=== PATIENT | female | born 1985 | race Caucasian/White ===

== ENCOUNTER 2016-05-09 10:34 | Emergency (ER) | payer OTHER ==
[2016-05-09 10:58] VITALS: BP 112/64
== END 2016-05-09 12:05 | disposition left against medical advice (07) ==
LOC: ED 10:34
DX: R11.10 Vomiting, unspecified (principal); R19.7 Diarrhea, unspecified; Z53.21 Procedure and treatment not carried out due to patient leaving prior to being seen by health care provider
CPT/HCPCS: 99281

== ENCOUNTER 2019-03-19 08:04 | Emergency (ER) | payer BC, MEDICAID ==
[2019-03-19 08:23] VITALS: BP 129/71
[2019-03-19] MEDS ORDERED: Ibuprofen TAB* 600 MG PO ONE (08:44)
[2019-03-19 10:13] LABS: Influenza B Molecular POSITIVE (Negative)
--- NOTE | 2019-03-19 10:18 | UC ---
Back Pain HPI - HPI Summary HPI Summary: 34-year-old woman comes in with a chief complaint of low back pain. Patient reports she had an injury back in 2013 and has had chronic intermittent low back pain ever since then. Occasionally the pain and some numbness radiates down through the buttocks into the upper legs. Last week she's been working quite a bit and her back pain is worse than usual. No difficulty controlling urine or bowels. No weakness. Since last night her back pain has gotten much more severe. She's having chills and generalized body aches and feels ill overall. Patient reports that she's had some medical care for her back injury when it happened but nothing since. The back pain is worse with twisting turning bending. Denies any abdominal pain. No dysuria. - History of Current Complaint Chief Complaint: UCGeneralIllness Stated Complaint: cough, CHILLS, AND ACHES Time Seen by Provider: 03/19/19 08:21 Hx Last Menstrual Period: NUVA RING NO PERIOD IN 6 YEARS Pain Intensity: 10 - Allergies/Home Medications Allergies/Adverse Reactions: Allergies Allergy/AdvReac Type Severity Reaction Status Date / Time nickel Allergy Swelling Verified 03/19/19 10:32 PMH/Surg Hx/FS Hx/Imm Hx Previously Healthy: Yes - CHRONIC BACK PAIN Other History Of: Negative For: HIV, Hepatitis B, Hepatitis C, Anticoagulant Therapy - Surgical History Surgical History: None - Family History Known Family History: Negative: Cardiac Disease, Hypertension, Diabetes - Social History Alcohol Use: Rare Substance Use Type: Marijuana Substance Use Comment - Amount & Last Used: PT STATES STOPPED SMOKING MARIJUANA 7 MONTHS AGO Smoking Status (MU): Current Some Day Smoker Type: Cigarettes Amount Used/How Often: SMOKES 1 CIGARETTE 1X/WEEK Length of Time of Smoking/Using Tobacco: ON AND OFF FOR 8+ YEARS Have You Smoked in the Last Year: Yes Review of Systems All Other Systems Reviewed And Are Negative: Yes Constitutional: Positive: Chills, Other - SEE HPI Skin: Positive: Negative Eyes: Positive: Negative ENT: Positive: Other - SEE HPI Respiratory: Positive: Negative Cardiovascular: Positive: Negative Gastrointestinal: Positive: Negative Genitourinary: Positive: Negative Motor: Positive: Negative Neurovascular: Positive: Negative Musculoskeletal: Positive: Other: - SEE HPI Neurological: Positive: Negative Psychological: Positive: Negative Is Patient Immunocompromised?: No Physical Exam Triage Information Reviewed: Yes Appearance: Well-Nourished, Ill-Appearing - MILD, Pain Distress - MILD WITH ROM OF BACK Vital Signs: Initial Vital Signs Temp 99.0 F 03/19/19 08:15 Pulse 90 03/19/19 08:15 Resp 16 03/19/19 08:15 BP 129/71 03/19/19 08:15 Pulse Ox 95 03/19/19 08:15 Vital Signs Reviewed: Yes Eye Exam: Normal Eyes: Positive: Conjunctiva Clear ENT: Negative: Nasal drainage Neck: Positive: Supple Respiratory: Positive: Lungs clear, Normal breath sounds, No respiratory distress Cardiovascular: Positive: RRR Abdomen Description: Positive: Nontender, Soft Bowel Sounds: Positive: Present Musculoskeletal: Positive: Other: - Patient is tender to palpation midline of lower thoracic and all through the lumbar spine. Normal patellar reflexes normal sensation and the legs. Normal strength and range of motion in the legs with plantarflexion and dorsiflexion knee flexion extension and hip flexion. Neurological: Positive: Alert Psychological: Positive: Age Appropriate Behavior Skin Exam: Normal Back Pain Course/Dx - Course Course Of Treatment: Middle Stitcher: Lele Devlin F ([id number]) Police Pilot: MADALYN ( NUANCE) Report Date: 03/19/2019 09:39:00 Report Status: Final ====== Start of Report Content Patient Name: ILYA HARRIS Medical Record#: [id number] Ordering Physician: Matthias Blanc MD Acct.#: [id number] : Age: 34 Sex: F Location: [facility] Exam Date: 03/19/19844 ADM Status: REG ER Order Information: THORACIC SPINE 2 S Accession Number : [id number] CPT: 30820 INDICATION: Worsening chronic back pain status post trauma. COMPARISON: There are no relevant prior studies available for comparison. TECHNIQUE: AP and lateral films of the dorsal spine were obtained. FINDINGS: The vertebra are in normal alignment. No fracture is seen. Disc spaces appear maintained. IMPRESSION: NO EVIDENCE FOR FRACTURE. <Electronically signed by Lele Devlin MD in OV> 03/19/19934 Dictated By: Lele Devlin MD Dictated Date/ Time: 03/19/19932 Transcribed Date/Time: 03/19/19932 Copy to: CC:No Primary Care Phys,NOPCP ; Matthias Blanc MD Imaging - [facility] [address] [place] [id number] [address] [address] ph [phone]) ph [phone]) ([phone]) End of Report Content ==== Middle Stitcher: Roberto Sanchez Daniel, ([id number]) Police Pilot: MADALYN ( PREMAANCE) Report Date: 03/19/2019 09:39:00 Report Status: Final ====== Start of Report Content Patient Name: ILYA HARRIS Janene Medical Record#: [id number] Ordering Physician: Matthias Blanc MD Acct.#: [id number] : Age: 34 Sex: F Location: [facility] Exam Date: 03/19/19844 ADM Status: REG ER Order Information: SACRUM/COCCYX 2+ VWS Accession Number : [id number] CPT: 80766 HISTORY: worsening chronic pain s/p trauma . COMPARISONS: None relevant available at the time of dictation. VIEWS: 3, frontal , outlet, and lateral views of the sacrum and coccyx. The outlet views limited by positioning. FINDINGS: BONE DENSITY: Normal. BONES: There is no displaced fracture. The sacral arches are intact. JOINTS: There is mild osteoarthritis of the SI joints. ALIGNMENT: There is no dislocation. SOFT TISSUES: Unremarkable. OTHER FINDINGS: None. IMPRESSION: SI OSTEOARTHRITIS. NO ACUTE OSSEOUS INJURY. IF SYMPTOMS PERSIST, RECOMMEND REPEAT IMAGING. <Electronically signed by Roberto Sanchez MD in OV> 03/19/19934 Dictated By: Roberto Sanchez MD Dictated Date/Time: 932 Transcribed Date/Time: 03/19/19932 Copy to: CC:No Primary Care Phys, NOPCP ; Matthias Blanc MD Imaging - [facility] Imaging - [facility] [address] [address] ph [phone]) ph [phone]) ph ([phone]) ==== End of Report Content Middle Stitcher: Roberto Sanchez Daniel, ([id number]) Police Pilot: MADALYN ( MADALYN) Report Date: 03/19/2019 09:36:00 Report Status: Final ====== Start of Report Content Patient Name: ILYA HARRIS Medical Record#: [id number] Ordering Physician: Matthias Blanc MD Acct.#: [id number] : Age: 34 Sex: F Location: [facility] Exam Date: 03/19/19844 ADM Status: REG ER Order Information: SP LUMBARSACRAL 4+ VWS Accession Number: [id number] CPT: 95064 HISTORY: worsening chronic pain s/p trauma COMPARISONS: December 05, 2013 VIEWS: 5 , Frontal, lateral, coned-down lateral sacral, and bilateral oblique views of the lumbar spine. FINDINGS: ALIGNMENT: There is grade 1 anterolisthesis of L5-S1 VERTEBRAL BODIES: There are bilateral pars defects at L5. JOINTS: The facet joints are normal. INTERVERTEBRAL DISCS: The intervertebral disc heights are normal. SOFT TISSUE: Unremarkable. OTHER: The pelvis is unremarkable. The lung bases are clear. IMPRESSION: SPONDYLOLYSIS WITH SPONDYLOLISTHESIS AT L5-S1 SIMILAR TO THE 2013 EXAMINATION. <Electronically signed by Roberto Sanchez MD in OV> 03/19/19932 Dictated By: Roberto Sanchez MD Dictated Date/Time: 03/19/19931 Transcribed Date/Time: 03/19/19931 Copy to: CC:No Primary Care Phys,NOPCP ; Matthias Blanc MD Imaging - [facility] Imaging [facility] [id number] [place] [id number] [place] [address] ph [phone]) ph ([phone]) ph ([phone]) End of Report Content Influenza B is positive. We will treat with Tamiflu. I discussed the x-rays with the patient. Patient has no neurologic deficit on exam today. My impression is that the patient has chronic intermittent low back pain with radiculopathy since an injury in 2012 that's been getting worse because she's been working a lot the last month. When she got the flu with the associated myalgias it made the back pain much worse. Will treat with ibuprofen and lidocaine patches and follow-up with sports medicine. - Differential Dx/Diagnosis Provider Diagnosis: Influenza, Thoracic back pain, Lumbar back pain with radiculopathy affecting lower extremity Discharge ED - Sign-Out/Discharge Documenting (check all that apply): Patient Departure All imaging exams completed and their final reports reviewed: Yes - Discharge Plan Condition: Stable Disposition: HOME Prescriptions: Oseltamivir CAP* [Tamiflu CAP*] 75 mg PO BID #10 cap Patient Education Materials: Influenza (ED), Lumbar Radiculopathy (ED), Back Pain (ED), Lower Back Exercises (ED) Forms: *Work Release Referrals: [facility] [Outside] [facility] [Provider Group] Additional Instructions: FOLLOW UP WITH YOUR DOCTOR IF NOT COMPLETELY IMPROVED. FOLLOW UP WITH SPORTS MEDICINE FOR YOUR BACK PAIN AND BILATERAL LEG NUMBNESS. Take ibuprofen 600 mg every 6 hours as needed for a the pain associated with the influenza and also your chronic low back pain. Use an [id number] lidocaine patch for your back pain if helpful. GET REEVALUATED SOONER IF NOT IMPROVED OR WORSE; WEAKNESS, NUMBNESS, DIFFICULTY CONTROLLING BOWEL OR BLADDER, YOU FEEL ILL OR ANY QUESTIONS OR CONCERNS. - Billing Disposition and Condition Condition: STABLE Disposition: Home
== END 2019-03-19 10:38 | disposition home or self-care (01) ==
LOC: UCEAST 08:04
DX: J11.1 Influenza due to unidentified influenza virus with other respiratory manifestations (principal); M54.6 Pain in thoracic spine; M54.5 Low back pain; M54.16 Radiculopathy, lumbar region; M47.898 Other spondylosis, sacral and sacrococcygeal region; M47.897 Other spondylosis, lumbosacral region; M43.17 Spondylolisthesis, lumbosacral region; G89.29 Other chronic pain; F17.210 Nicotine dependence, cigarettes, uncomplicated; Z91.09 Other allergy status, other than to drugs and biological substances; Z87.828 Personal history of other (healed) physical injury and trauma
CPT/HCPCS: 72070; 72110; 72220; 81003; 99212; A9270-GY; G0463

== ENCOUNTER 2019-03-20 14:34 | Emergency (ER) | payer BC ==
[2019-03-20] MEDS ORDERED: Ondansetron ODT TAB* 4 MG PO ONE (15:22)
[2019-03-20] MEDS ORDERED: Acetaminophen TAB* 325 MG PO ONE (16:37)
[2019-03-20 18:02] LABS: ABS Lymphocytes 0.7 10^3/ul (1.0-4.8); ABS Monocytes 0.3 10^3/ul (0-0.8); Hematocrit 39 % (35-47); Hemoglobin 13.3 g/dL (12.0-16.0); Lymphocyte % 22.4 %; Mean Corpuscular HGB Conc 34 g/dL (31-36); Mean Corpuscular Hemoglobin 32 pg (27-31); Mean Corpuscular Volume 93 fL (80-97); Mean Platelet Volume 8.2 fL (7.4-10.4); Nucleated Red Blood Cells % 0.3; Platelet Count 160 10^3/uL (150-450); Red Blood Count 4.17 10^6 /uL (3.70-4.87); Red Cell Distribution Width 13 % (10-15)
[2019-03-20 18:19] LABS: Albumin 4.2 g/dL (3.2-5.2); Albumin/Globulin Ratio 1.3 (1-3); BUN/Creatinine Ratio 10.9 (8-20); Calcium 9.1 mg/dL (8.6-10.3); EGFR African American 85.6 (>60); EGFR Non-African American 70.7 (>60); Globulin 3.2 g/dL (2-4); Potassium 3.6 mmol/L (3.5-5.0); Total Bilirubin 0.3 mg/dL (0.2-1.0); Total Protein 7.4 g/dL (6.4-8.9)
--- NOTE | 2019-03-20 18:33 | ED ---
HPI Febrile Illness - HPI Summary HPI Summary: 34-year-old female who was recently diagnosed with influenza 2 days ago on 2018 presents to the emergency department today complaining of flulike symptoms. She states she was given Tamiflu at urgent care where she was positive for influenza. She states since being seen at urgent care she has had increased nausea, decreased by mouth intake and is having difficulty keeping down her Tamiflu. She currently is complaining of fever, muscle aches, nausea, headache. She states this is not the worst headache of her life and denies neck pain. She denies diarrhea. She is not concerned of any aggression of influenza but is having difficulty managing it. She denies chest pain, abdominal pain, diarrhea, vomiting, rash, neck pain. - History of Current Complaint Chief Complaint: EDNauseaVomitDiarrh Time Seen by Provider: 03/20/19 18:21 Hx Obtained From: Patient Hx Last Menstrual Period: NUVA RING NO PERIOD IN 6 YEARS Onset/Duration: Started Days Ago Timing: Constant Initial Severity: Moderate Current Severity: Severe Pain Intensity: 8 Pain Scale Used: 0-10 Numeric Associated Signs and Symptoms: Headache, Myalgia, Nausea - Allergy/Home Medications Allergies/Adverse Reactions: Allergies Allergy/AdvReac Type Severity Reaction Status Date / Time nickel Allergy Swelling Verified 03/19/19 10:32 PMH/Surg Hx/FS Hx/Imm Hx Endocrine/Hematology History: Denies: Hx Anticoagulant Therapy, Hx Diabetes, Hx Thyroid Disease Cardiovascular History: Denies: Hx Congestive Heart Failure, Hx Deep Vein Thrombosis, Hx Hypertension , Hx Myocardial Infarction, Hx Pacemaker/ICD Respiratory History: Denies: Hx Asthma, Hx Chronic Obstructive Pulmonary Disease (COPD), Hx Lung Cancer, Hx Pneumonia, Hx Pulmonary Embolism GI History: Denies: Hx Gall Bladder Disease, Hx Gastrointestinal Bleed, Hx Ulcer, Hx Urosepsis History: Denies: Hx Kidney Stones, Hx Renal Disease Musculoskeletal History: Reports: Hx Scoliosis Neurological History: Reports: Other Neuro Impairments/Disorders - hx of sacrum coccyx dislocatiuon 2012 Denies: Hx Dementia, Hx Migraine, Hx Seizures, Hx Transient Ischemic Attacks (TIA) Psychiatric History: Reports: Hx Anxiety, Hx of Violent Episodes Against Others Denies: Hx Eating Disorder, Hx Depression, Hx Schizophrenia, Hx Bipolar Disorder - Immunization History Date of Tetanus Vaccine: Unknown Date of Influenza Vaccine: None Infectious Disease History: No Infectious Disease History: Denies: Hx Hepatitis, Hx Human Immunodeficiency Virus (HIV), History Other Infectious Disease, Traveled Outside the [place] in Last 30 Days - Family History Known Family History: Negative: Cardiac Disease, Hypertension, Diabetes - Social History Alcohol Use: Rare Substance Use Type: Reports: Marijuana Substance Use Comment - Amount & Last Used: pt smokes smoking pot everyday Smoking Status (MU): Former Smoker Type: Cigarettes Amount Used/How Often: SMOKES 1 CIGARETTE 1X/WEEK Length of Time of Smoking/Using Tobacco: ON AND OFF FOR 8+ YEARS Have You Smoked in the Last Year: Yes Review of Systems Positive: Fever, Fatigue Eyes: Negative ENT: Negative Cardiovascular: Negative Respiratory: Negative Positive: Nausea Genitourinary: Negative Positive: Myalgia Skin: Negative Positive: Headache Psychological: Normal All Other Systems Reviewed And Are Negative: Yes Physical Exam Triage Information Reviewed: Yes Vital Signs On Initial Exam: Initial Vitals Temp Pulse Resp BP Pulse Ox 102.3 F 79 16 117/71 100 03/20/19 14:42 03/20/19 14:42 03/20/19 14:42 03/20/19 14:42 03/20/19 14:42 Vital Signs Reviewed: Yes Appearance: Positive: Well-Appearing, No Pain Distress, Well-Nourished Skin: Positive: Warm, Skin Color Reflects Adequate Perfusion Eyes: Positive: EOMI, CASSY ENT: Positive: Hearing grossly normal Respiratory/Lung Sounds: Positive: Clear to Auscultation, Breath Sounds Present Cardiovascular: Positive: RRR, S1, S2 Abdomen Description: Positive: Nontender, No Organomegaly, Soft. Negative: CVA Tenderness (R), CVA Tenderness (L), Distended, Guarding, McBurney's Point Tenderness Bowel Sounds: Positive: Present Musculoskeletal: Positive: Normal, Strength/ROM Intact Neurological: Positive: Sensory/Motor Intact, Alert, Oriented to Person Place, Time, Normal Gait, Speech Normal. Negative: Slurred Speech Psychiatric: Positive: Normal AVPU Assessment: Alert Procedures - Sedation Patient Received Moderate/Deep Sedation with Procedure: No Diagnostics - Vital Signs Vital Signs Temp Pulse Resp BP Pulse Ox 03/20/19 18:20 99.9 F 03/20/19 18:10 76 97 03/20/19 18:09 72 107/66 96 03/20/19 16:44 101.2 F 77 18 125/72 96 03/20/19 14:42 102.3 F 79 16 117/71 100 - Laboratory Lab Results: Lab Results 03/20/19 03/20/19 Range/Units 17:51 17:51 WBC 3.0 L (3.5-10.8) 10^3/uL RBC 4.17 (3.70-4.87) 10^6 /uL Hgb 13.3 (12.0-16.0) g/dL Hct 39 (35-47) % MCV 93 (80-97) fL MCH 32 H (27-31) pg MCHC 34 (31-36) g/dL RDW 13 (10-15) % Plt Count 160 (150-450) 10^3/uL MPV 8.2 (7.4-10.4) fL Neut % (Auto) 68.6 % Lymph % (Auto) 22.4 % [place] % (Auto) 8.5 % Eos % (Auto) 0.0 % Baso % (Auto) 0.5 % Absolute Neuts (auto) 2.0 (1.5-7.7) 10^3/ul Absolute Lymphs (auto) 0.7 L (1.0-4.8) 10^3/ul Absolute Monos (auto) 0.3 (0-0.8) 10^3/ul Absolute Eos (auto) 0.0 (0-0.6) 10^3/ul Absolute Basos (auto) 0.0 (0-0.2) 10^3/ul Absolute Nucleated RBC 0.0 10^3/ul Nucleated RBC % 0.3 Sodium 136 (135-145) mmol/L Potassium 3.6 (3.5-5.0) mmol/L Chloride 105 (101-111) mmol/L Carbon Dioxide 21 L (22-32) mmol/L Anion Gap 10 (2-11) mmol/L BUN 10 (6-24) mg/dL Creatinine 0.92 (0.51-0.95) mg/dL Est GFR ( Amer) 85.6 (>60) Est GFR (Non-Af Amer) 70.7 (>60) BUN/Creatinine Ratio 10.9 (8-20) Glucose 85 (70-100) mg/dL Calcium 9.1 (8.6-10.3) mg/dL Total Bilirubin 0.30 (0.2-1.0) mg/dL AST 19 (13-39) U/L ALT 11 (7-52) U/L Alkaline Phosphatase 43 (34-104) U/L Total Protein 7.4 (6.4-8.9) g/dL Albumin 4.2 (3.2-5.2) g/dL Globulin 3.2 (2-4) g/dL Albumin/Globulin Ratio 1.3 (1-3) Result Diagrams: 03/20/19 17:51 03/20/19 17:51 Lab Statement: Any lab studies that have been ordered have been reviewed, and results considered in the medical decision making process. Course/Dx - Course Course Of Treatment: Patient was evaluated in the emergency department for influenza. The patient was seen and examined. Her vital signs are stable however she was febrile. She was given Tylenol and Zofran for her fever and nausea. She is given 1 L of lactated Ringer's for the dehydration as she has had poor by mouth intake recently due to her nausea. She has no leukocytosis or signs of electrolyte disturbance. She is given a prescription of Zofran to encourage by mouth intake, and Tylenol and told to follow up with her primary care physician for further evaluation and management. She was told to return to the emergency department immediately if she helps any new or worsening symptoms. - Febrile Illness Differential Diagnoses: Fever of Unknown Origin, Pneumonia - Diagnoses Provider Diagnoses: Fever Discharge ED - Sign-Out/Discharge Documenting (check all that apply): Patient Departure - Discharge Plan Condition: Stable Disposition: HOME Prescriptions: Ondansetron ODT TAB* [Zofran 4 MG Odt TAB*] 4 mg PO Q6H PRN #12 tab.odt PRN Reason: Nausea Patient Education Materials: Influenza (ED) Referrals: [facility] [Outside] - 3 Days No Primary Care Phys,NOPCP [Primary Care Provider] - Additional Instructions: You were seen in the emergency department today due to an exacerbation of your influenza. There appears to be no sequela such as pneumonia. Please continue to take your Tamiflu and increase fluid intake especially electrolyte rich fluids. I prescribed Zofran which may be taken for your nausea and picked up at your pharmacy. Please follow up with your primary care physician or care connect Physician in 5 days if your symptoms have not resolved. Please return to the emergency department immediately if you develop any new or worsening symptoms. - Billing Disposition and Condition Condition: STABLE Disposition: Home
[2019-03-20] MEDS ORDERED: Lactated Ringers 1000 ML Bag* 1,000 ML IV SCH (19:00)
[2019-03-20 19:39] VITALS: BP 95/55
== END 2019-03-20 19:34 | disposition home or self-care (01) ==
LOC: ED 14:34
DX: R50.9 Fever, unspecified (principal); F41.9 Anxiety disorder, unspecified; F17.210 Nicotine dependence, cigarettes, uncomplicated
CPT/HCPCS: 36415; 80053; 85025; 99282; A9270-GY